=== PATIENT | female | born 1940 | race Native Hawaiian/Other Pacific Islander ===

== ENCOUNTER 2017-03-18 07:23 | Outpatient (CLI) | payer OTHER ==
[~2017-03-18] VITALS: Ht 154.9 cm; Wt 63.5 kg
== END 2017-03-18 09:00 | disposition home or self-care (01) ==
LOC: NM 07:23
DX: I50.9 Heart failure, unspecified (principal); I48.91 Unspecified atrial fibrillation
CPT/HCPCS: A9500; J2785